=== PATIENT | male | born 1960 | race Hispanic/Latino ===

== ENCOUNTER 2022-02-21 23:56 | Emergency (ER) | payer OTHER, MEDICARE ==
[~2022-02-21] VITALS: Ht 175.3 cm; Wt 91.2 kg
[2022-02-22 01:12] VITALS: BP 152/88
[2022-02-22] MEDS ORDERED: BENZ-39 PO (01:58)
[2022-02-22] MEDS ORDERED: MOLN200C PO (01:58)
== END 2022-02-22 02:07 | disposition home or self-care (01) ==
LOC: EDH 23:56
DX: U07.1 COVID-19 (principal); J06.9 Acute upper respiratory infection, unspecified; E78.00 Pure hypercholesterolemia, unspecified; I10 Essential (primary) hypertension; Z79.899 Other long term (current) drug therapy
CPT/HCPCS: 99283; 87635; 87880; 87804 ×2; C9803